=== PATIENT | female | born 1965 ===

== ENCOUNTER 2021-07-31 07:15 | Inpatient (IN) | payer OTHER ==
[~2021-07-31] VITALS: Ht 160 cm; Wt 72.1 kg
[2021-07-31] MEDS ORDERED: SIMVASTATIN PO (09:34)
[2021-07-31] MEDS ORDERED: VITAMINA (09:34)
[2021-07-31] MEDS ORDERED: OMEPRAZOLE-BIC1 EAC1 (09:35)
[2021-07-31] MEDS ORDERED: TIZANIDINE HCL4 M1 (09:35)
[2021-07-31] MEDS ORDERED: FAMOTIDINE PO (09:35)
[2021-07-31] MEDS ORDERED: DICYCLOMIN10 MG/5 M1 (09:36)
[2021-07-31] MEDS ORDERED: MECLIZINE HCL25 M1 (09:36)
[2021-07-31] MEDS ORDERED: SYNTHROID88 MCG (09:36)
[2021-08-02] MEDS ORDERED: SIMVASTATIN40 MG (14:12)
[2021-08-02] MEDS ORDERED: VITAMIN D250 MCG (14:12)
[2021-08-02] MEDS ORDERED: FAMOTIDINE40 MG (14:12)
== END 2021-08-04 10:50 | disposition home or self-care (01) | DRG 735 ==
LOC: O/R 08-02 06:30 → SURH 08-02 07:15 → OB/GYN 08-02 15:01 → SURH 08-02 16:00 → OB/GYN 08-04 10:50
PROVIDERS: Surgery; ADMIT Obstetrics & Gynecology Gynecologic Oncology; ATTEND Obstetrics & Gynecology Gynecologic Oncology
PROC: 0D5W0ZZ Destruction of Peritoneum, Open Approach (ICD-10-PCS; 2021-08-02)
PROC: 0DTU0ZZ Resection of Omentum, Open Approach (ICD-10-PCS; 2021-08-02)
PROC: 0DNW0ZZ Release Peritoneum, Open Approach (ICD-10-PCS; 2021-08-02)
PROC: 0WQF0ZZ Repair Abdominal Wall, Open Approach (ICD-10-PCS; 2021-08-02)
PROC: 0DTJ0ZZ Resection of Appendix, Open Approach (ICD-10-PCS; 2021-08-02)
PROC: 07TC0ZZ Resection of Pelvis Lymphatic, Open Approach (ICD-10-PCS; principal; 2021-08-02 18:05)
PROC: 0UT70ZZ Resection of Bilateral Fallopian Tubes, Open Approach (ICD-10-PCS; 2021-08-02 18:05)
PROC: 0UT20ZZ Resection of Bilateral Ovaries, Open Approach (ICD-10-PCS; 2021-08-02 18:05)
DX: D27.0 Benign neoplasm of right ovary (principal); N80.1 Endometriosis of ovary; K43.9 Ventral hernia without obstruction or gangrene; K36 Other appendicitis; Z20.822 Contact with and (suspected) exposure to COVID-19